=== PATIENT | male | born 1955 | race Caucasian/White ===

== ENCOUNTER 2016-09-05 11:24 | Observation (INO) | payer BC, OTHER ==
[2016-09-05] MEDS ORDERED: Aspirin 81 MG Tab.Chew PO ONE (11:37)
--- NOTE | 2016-09-05 11:38 | EDM.PDOC ---
ED HPI GENERAL MEDICAL PROBLEM - General Chief Complaint: Cardiovascular Problem Stated Complaint: HEART MONITOR Time Seen by Provider: 09/05/16 11:33 - History of Present Illness INITIAL COMMENTS - FREE TEXT/NARRATIVE: HISTORY AND PHYSICAL: History of present illness: Patient is 61-year-old white male history of [id number] diabetes and hypertension who presents with a concern of exertional dyspnea this been somewhat off and on since last week it was worse last week he can also associated generalized weakness he was sent here by clinic after they had noted an irregular heartbeat patient states he has had some pleuritic chest pain denies other concerns. He denies history of DVT or pulmonary embolism Review of systems: As per history of present illness and below otherwise all systems reviewed and negative. Past medical history: As per history of present illness and as reviewed below otherwise noncontributory. Surgical history: As per history of present illness and as reviewed below otherwise noncontributory. Social history: No reported history of drug or alcohol abuse. Family history: As per history of present illness and as reviewed below otherwise noncontributory. Physical exam: HEENT: Atraumatic, normocephalic, pupils reactive, negative for conjunctival pallor or scleral icterus, mucous membranes moist, throat clear, neck supple, nontender, trachea midline. Lungs: Clear to auscultation, breath sounds equal bilaterally, chest nontender. Heart: S1S2, regular, negative for clicks, rubs, or JVD. Abdomen: Soft, nondistended, nontender. Negative for masses or hepatosplenomegaly. Negative for costovertebral tenderness. Pelvis: Stable nontender. Genitourinary: Deferred. Rectal: Deferred. Extremities: Atraumatic, negative for cords or calf pain. Neurovascular unremarkable. Neuro: Awake, alert, oriented. Cranial nerves II through XII unremarkable. Cerebellum unremarkable. Motor and sensory unremarkable throughout. Exam nonfocal. Diagnostics: CBC CMP PT/INR troponin d-dimer BNP EKG CT chest Therapeutics: IV O2 monitor aspirin Impression: #1 intermittent exertional dyspnea #2 pleuritic chest pain Definitive disposition and diagnosis as appropriate pending reevaluation and review of above. - Related Data Allergies Allergy/AdvReac Type Severity Reaction Status Date / Time No Known Allergies Allergy Verified 09/05/16 11:49 Home Meds: Home Meds Lisinopril 10 mg PO DAILY 09/05/16 [History] ED ROS GENERAL - Review of Systems Review Of Systems: ROS reveals no pertinent complaints other than HPI. ED EXAM, GENERAL - Physical Exam Exam: See Below (See dictation) Course - Vital Signs Last Recorded V/S: Last Vital Signs Temp 36.2 C 09/05/16 11:43 Pulse 72 09/05/16 12:14 Resp 17 09/05/16 12:14 BP 113/72 09/05/16 12:14 Pulse Ox 94 L 09/05/16 12:14 - Orders/Labs/Meds Orders: Active Orders 24 hr Category Date Time Status Cardiac Monitoring [RC] . DIRECTED Care 09/05/16 11:36 Active EKG Documentation Completion [RC] STAT Care 09/05/16 11:36 Active Oxygen Therapy, ED [RC] ASDIRECTED Care 09/05/16 11:36 Active Labs: Laboratory Tests 09/05/16 09/05/16 09/05/16 Range/Units 11:30 11:30 11:30 WBC 10.92 (4.0-11.0) K/uL RBC 4.45 L (4.50-5.90) M/uL Hgb 13.4 (13.0-17.0) g/dL Hct 39.5 (38.0-50.0) % MCV 88.8 (80.0-98.0) fL MCH 30.1 (27.0-32.0) pg MCHC 33.9 (31.0-37.0) g/dL RDW Std Deviation 41.7 (28.0-62.0) fl RDW Coeff of Tawnya 13 (11.0-15.0) % Plt Count 230 (150-400) K/uL MPV 11.00 (7.40-12.00) fL Neut % (Auto) 72.6 (48.0-80.0) % Lymph % (Auto) 15.1 L (16.0-40.0) % Alfalfa % (Auto) 11.4 (0.0-15.0) % Eos % (Auto) 0.6 (0.0-7.0) % Baso % (Auto) 0.3 (0.0-1.5) % Neut # (Auto) 7.9 H (1.4-5.7) K/uL Lymph # (Auto) 1.7 (0.6-2.4) K/uL Alfalfa # (Auto) 1.2 H (0.0-0.8) K/uL Eos # (Auto) 0.1 (0.0-0.7) K/uL Baso # (Auto) 0.0 (0.0-0.1) K/uL Nucleated RBC % 0.0 /100WBC Nucleated RBCs # 0 K/uL D-Dimer, Quantitative 1.92 H (0.0-0.52) mg/LFEU Sodium 133 L (136-146) mmol/L Potassium 3.8 (3.5-5.1) mmol/L Chloride 100 (98-110) mmol/L Carbon Dioxide 20 L (21-31) mmol/L BUN 21 (6.0-23.0) mg/dL Creatinine 1.0 (0.6-1.5) mg/dL Est Cr Clr Drug Dosing TNP Estimated GFR (MDRD) > 60.0 ml/min Glucose 162 H (60-110) mg/dL Calcium 9.1 (8.8-10.8) mg/dL Total Bilirubin 0.9 (0.1-1.5) mg/dL AST 20 (5-40) IU/L ALT 24 (8-54) IU/L Alkaline Phosphatase 62 (40-150) Troponin I (0.0-0.29) NG/ML B-Natriuretic Peptide (<100) PG/ML Total Protein 7.0 (6.0-8.0) g/dL Albumin 3.8 (3.4-4.8) g/dL Globulin 3.2 (2.0-3.5) g/dL Albumin/Globulin Ratio 1.2 L (1.3-2.8) 09/05/16 09/05/16 Range/Units 11:30 11:30 WBC (4.0-11.0) K/uL RBC (4.50-5.90) M/uL Hgb (13.0-17.0) g/dL Hct (38.0-50.0) % MCV (80.0-98.0) fL MCH (27.0-32.0) pg MCHC (31.0-37.0) g/dL RDW Std Deviation (28.0-62.0) fl RDW Coeff of Tawnya (11.0-15.0) % Plt Count (150-400) K/uL MPV (7.40-12.00) fL Neut % (Auto) (48.0-80.0) % Lymph % (Auto) (16.0-40.0) % Alfalfa % (Auto) (0.0-15.0) % Eos % (Auto) (0.0-7.0) % Baso % (Auto) (0.0-1.5) % Neut # (Auto) (1.4-5.7) K/uL Lymph # (Auto) (0.6-2.4) K/uL Alfalfa # (Auto) (0.0-0.8) K/uL Eos # (Auto) (0.0-0.7) K/uL Baso # (Auto) (0.0-0.1) K/uL Nucleated RBC % /100WBC Nucleated RBCs # K/uL D-Dimer, Quantitative (0.0-0.52) mg/LFEU Sodium (136-146) mmol/L Potassium (3.5-5.1) mmol/L Chloride (98-110) mmol/L Carbon Dioxide (21-31) mmol/L BUN (6.0-23.0) mg/dL Creatinine (0.6-1.5) mg/dL Est Cr Clr Drug Dosing Estimated GFR (MDRD) ml/min Glucose (60-110) mg/dL Calcium (8.8-10.8) mg/dL Total Bilirubin (0.1-1.5) mg/dL AST (5-40) IU/L ALT (8-54) IU/L Alkaline Phosphatase (40-150) Troponin I < 0.10 (0.0-0.29) NG/ML B-Natriuretic Peptide 96 (<100) PG/ML Total Protein (6.0-8.0) g/dL Albumin (3.4-4.8) g/dL Globulin (2.0-3.5) g/dL Albumin/Globulin Ratio (1.3-2.8) Meds: Medications Discontinued Medications Generic Name Dose Route Start Last Admin Trade Name Freq PRN Reason Stop Dose Admin Aspirin 324 mg 09/05/16 11:37 09/05/16 11:41 Aspirin PO 09/05/16 11:38 324 mg ONETIME ONE Administration Iopamidol 50 ml 09/05/16 12:59 09/05/16 13:00 Isovue Multipack-370 (76%) IVPUSH 09/05/16 13:00 50 ml ONETIME STA Administration Departure - Departure Time of Disposition: 13:11 Disposition: Refer to Observation Condition: good Clinical Impression: Dyspnea Forms: ED Department Discharge - My Orders Last 24 Hours: My Active Orders 09/05/16 11:36 Cardiac Monitoring [RC] . DIRECTED EKG Documentation Completion [RC] STAT Oxygen Therapy, ED [RC] ASDIRECTED - Assessment/Plan Last 24 Hours: My Active Orders 09/05/16 11:36 Cardiac Monitoring [RC] . DIRECTED EKG Documentation Completion [RC] STAT Oxygen Therapy, ED [RC] ASDIRECTED
[2016-09-05 12:10] LABS: CHLORIDE,CL 100 mmol/L (98-110); SODIUM,NA 133 mmol/L (136-146)
[2016-09-05] MEDS ORDERED: Iopamidol 755 MG/ML 500 ML Multipack Bottle IVPUSH STA (12:59)
--- NOTE | 2016-09-05 13:10 | CT ---
EXAMINATION: CTA chest HISTORY: Chest pain COMPARISON: None TECHNIQUE: Axial CT images obtained through the chest following the administration of 50 mL of Isovu e-370. Coronal and sagittal reconstructions obtained. FINDINGS: There is a 2.7 cm nodular area within the left lower lobe. There is a fullness of the left hilum also demonstrated with mild peribronchovascular thickening. Mildly prominent mediastinal lymp h nodes are noted measuring up to 12 mm in the short axis. The heart is normal in size without a per icardial effusion. The thoracic aorta is normal in caliber. The main and central pulmonary arteries are patent. There is a trace left pleural effusion with mild bibasilar atelectasis. There is likely a tiny hiatal hernia. No axillary lymphadenopathy. The central airways are clear. No suspicious osseous abnormalities identified. IMPRESSION: 1. There is a 2.7 cm ill-defined nodular area within the left lower lobe. This could represent focal consolidation however a neoplastic process is a consideration. Short-term follow-up may be benefici al. 2. Left hilar fullness and borderline to mildly prominent mediastinal lymphadenopathy. Additionally this could be reactive. 3. No pulmonary embolism identified.
[2016-09-05] MEDS ORDERED: Acetaminophen 325 MG Tab PO PRN (14:10)
[2016-09-05] MEDS ORDERED: Ondansetron 4 MG/2 ML SDV IVPUSH PRN (14:10)
[2016-09-05] MEDS ORDERED: Sodium Chloride 0.9% 2.5 ML Syringe FLUSH PRN (14:10)
--- NOTE | 2016-09-05 14:33 | PCM.HP ---
H&P History of Present Illness - General Date of Service: 09/05/16 Source of Information: Patient History Limitations: Reports: No Limitations - History of Present Illness Initial Comments - Free Text/Narative: This 61 year old male with pmh of DM type 2 and HTN presented to his PCP, Judith Hutchinson today with concerns of feeling ill over the weekend with malaise, generalized weakness and dypsnea with exertion. An WKG was performed and irregularity was noted and he was sent to the ED. He reports the beginning of last week he traveled from his home in [facility] to here, [place], via car. He noticed dyspnea with exertion on and then over the weekend he noted more SOB, some sharp pleuritic chest pain with deep breaths, poor appetite , malaise and generalized weakness. Reports nothing really helped the pain, except from refraining from deep breathing, which would worsen it. He reports while he was in [place] he stayed in a house with a lot of mold. He noticed no symptoms there, and currently denies, itching red eyes, sore throat, cough, hemoptysis or rash. He continues to reports slight SOB and pain mid sternally with deep breaths only, with irregular heart beat at the office he did notice palpitations, but has not felt anything since. He denies any sore throat, sinus congestion, ear pain, no jaw pain or chest pain at rest, no N/V, abdominal pain , no urinary symptoms and no black or bloody BMs. He denies any swelling to lower legs and no calf tenderness, erythema. No recent unexplained weight loss. no family history of lung cancer. Denies smoking or tobacco use. Uses alcohol infrequently and no recreational drug use. He also reports not taking Metformin for over 8 months, BS have been more elevated recently, 160-180s at home, he just started checking them again since feeling ill last week. In the ED no leukocytosis noted, D dimer elevated slightly 1.92, Na 133, BA 162 , troponin negative and EKG SR 70s, with noted PVCs on monitor. VS were stable, no noted hypoxia on RA. CT angio completed due to elevated D dimer, no pulmonary emboli noted, there is a 2.7 cm ill defined nodular area within the left lower lobe, this could represent focal consolidation, however neoplastic process is a consideration, radiology recommended short term follow up. He will be admitted with dyspnea, atypical chest pain and pneumonia. PCP, Judith Hutchinson NP Middle Chest Pain Score (Numeric/FACES): 4 - Related Data Allergies/Adverse Reactions: Allergies Allergy/AdvReac Type Severity Reaction Status Date / Time No Known Allergies Allergy Verified 09/05/16 11:49 Home Medications: Home Meds Lisinopril 10 mg PO DAILY 09/05/16 [History] Past Medical History Cardiovascular History: Reports: Hypertension, SOB on Exertion. Denies: Afib, Blood Clots/VTE/DVT, CAD, Heart Failure, NM Respiratory History: Denies: Asthma, COPD, PE Gastrointestinal History: Reports: None. Denies: GERD, GI Bleed, Hepatitis, Inflammatory Bowel Disease Genitourinary History: Reports: None. Denies: Chronic Renal Insuffiency Musculoskeletal History: Reports: None Neurological History: Reports: None. Denies: CVA, MS, TIA Endocrine/Metabolic History: Reports: Diabetes, Type II, Obesity/BMI 30+. Denies: Hypothyroidism Dermatologic History: Reports: None Social & Family History - Tobacco Use Smoking Status *Q: Never Smoker Second Hand Smoke Exposure: No - Caffeine Use Caffeine Use: Reports: Coffee - Alcohol Use Alcohol Use History: Yes Alcohol Use Frequency: Socially - Recreational Drug Use Recreational Drug Use: No - Living Situation & Occupation Occupation: Employed H&P Review of Systems - Review of Systems: Review Of Systems: See Below General: Reports: Malaise, Weakness, Fatigue. Denies: Fever, Decreased Appetite , Weight Loss HEENT: Denies: Dysphasia, Ear Pain, Headaches, Sinus Congestion, Sore Throat Pulmonary: Reports: Pleuritic Chest Pain. Denies: Cough, Sputum Cardiovascular: Reports: Dyspnea on Exertion. Denies: Chest Pain, Palpitations , Orthopnea, Edema, Lightheadedness Gastrointestinal: Reports: No Symptoms. Denies: Abdominal Pain, Black Stool, Bloody Stool, Decreased Appetite, Distension, Nausea, Vomiting Genitourinary: Reports: No Symptoms. Denies: Dysuria, Frequency, Burning, Pain , Retention, Flank Pain Musculoskeletal: Reports: No Symptoms Skin: Reports: No Symptoms. Denies: Rash, Wound Exam - Exam Exam: See Below - Vital Signs Vital Signs: Last Vital Signs Temp 97.2 F 09/05/16 11:43 Pulse 72 05/23/17 13:24 Resp 16 09/05/16 13:24 BP 113/68 09/05/16 13:24 Pulse Ox 94 L 09/05/16 13:24 Weight: 115.666 kg - Exam Quality Assessment: DVT Prophylaxis. No: Supplemental Oxygen General: Alert, Oriented, Cooperative HEENT: Conjunctiva Clear, Mucosa Moist & [place], Nares Patent, Posterior Pharynx Clear, Pupils Reactive Neck: Supple, Trachea Midline, Full Range of Motion. No: Lymphadenopathy, JVD Lungs: Clear to Auscultation, Normal Respiratory Effort. No: Decreased Breath Sounds, Crackles, Rhonchi, Wheezing Cardiovascular: Regular Rate, Regular Rhythm, Normal S1, Normal S2. No: Irregular Rhythm, Tachycardia, Systolic Murmur Abdomen: Normal Bowel Sounds, Soft. No: Organomegaly, Peritoneal Signs, Distention, Tenderness Back Exam: Full Range of Motion Extremities: Normal Inspection, Normal Pulses. No: Edema Neuro Extensive - Mental Status: Alert, Oriented x3, Normal Mood/Affect Neuro Extensive - Motor, Sensory, Reflexes: CN II-XII Intact Psychiatric: Alert, Normal Affect, Normal Mood - Patient Data Result Diagrams: 09/05/16 11:30 09/05/16 11:30 EKG INTERPRETATION EKG Date: 09/05/16 Rhythm: NSR Rate (beats/min): 76 [place]: normal Comparison: NA - no prior EKG EKG Interpretation Comments: PVCs noted *Q Meaningful Use (ADM) - VTE *Q VTE Criteria *Q: - VTE Risk Assess *Q Each Risk Factor Represents 1 Point: Obesity (BMI greater than 30), Serious Lung Disease Including Pneumonia, Less than 1 Month Total Score 1 Point Risk Factors: 2 Each Risk Factor Represents 2 Points: Age 60 - 74 Years Total Score 2 Point Risk Factors: 2 Each Risk Factor Represents 3 Points: None Total Score 3 Point Risk Factors: 0 Each Risk Factor Represents 5 Points: None Total Score 5 Point Risk Factors: 0 Venous Thromboembolism Risk Factor Score *Q: 4 - Stroke *Q Stroke Criteria *Q: - AMI *Q AMI Criteria *Q: - Problem List (1) Dyspnea SNOMED Code(s): 389756291 ICD Code: R06.00 - DYSPNEA, UNSPECIFIED Status: Acute Current Visit: Yes Qualifiers: Dyspnea type: dyspnea on exertion Qualified Code(s): R06.09 - Other forms of dyspnea (2) Pneumonia SNOMED Code(s): 949998748 ICD Code: J18.9 - PNEUMONIA, UNSPECIFIED ORGANISM Status: Acute Current Visit: Yes Qualifiers: Pneumonia type: due to unspecified organism Laterality: left Lung location: lower lobe of lung Qualified Code(s): J18.1 - Lobar pneumonia, unspecified organism (3) Atypical chest pain SNOMED Code(s): 659449624 ICD Code: R07.89 - OTHER CHEST PAIN Status: Acute Current Visit: Yes (4) DM type 2 (diabetes mellitus, type 2) SNOMED Code(s): 30432795 ICD Code: E11.9 - TYPE 2 DIABETES MELLITUS WITHOUT COMPLICATIONS Status: Chronic Current Visit: Yes Qualifiers: Diabetes mellitus complication status: with hyperglycemia Diabetes mellitus snf insulin use: without snf use Qualified Code(s): E11.65 - Type 2 diabetes mellitus with hyperglycemia (5) HTN (hypertension) SNOMED Code(s): 91039657 ICD Code: I10 - ESSENTIAL (PRIMARY) HYPERTENSION Status: Chronic Current Visit: Yes Qualifiers: Hypertension type: essential hypertension Qualified Code(s): I10 - Essential (primary) hypertension (6) Obesity (BMI 30.0-34.9) SNOMED Code(s): 658432662 ICD Code: E66.9 - OBESITY, UNSPECIFIED Status: Chronic Current Visit: Yes Problem List Initiated/Reviewed/Updated: Yes Orders Last 24hrs: Active Orders 24 hr Category Date Time Status Intake and Output [RC] QSHIFT Care 09/05/16 14:12 Ordered Oxygen Therapy [RC] PRN Care 09/05/16 14:10 Ordered Telemetry Monitoring [Cardiac Monitoring] [RC] . Care 09/05/16 14:19 Active DIRECTED Up With Assistance [RC] ASDIRECTED Care 09/05/16 14:10 Ordered VTE/DVT Education [RC] PER UNIT ROUTINE Care 09/05/16 14:10 Ordered Vital Signs [RC] Q4H Care 09/05/16 14:10 Ordered [employer] Diet [DIET] Diet 09/05/16 Dinner Ordered BMP [BASIC METABOLIC PANEL,BMP] [CHEM] Routine Lab 09/06/16 05:00 Ordered CBC WITH AUTO DIFF [HEME] Routine Lab 09/06/16 05:00 Ordered GLYCOSYLATED HEMOGLOBIN,HGBA1C [CHEM] Routine Lab 09/05/16 14:27 Ordered INFLUENZA A+B AG SCREEN [RM] Stat Lab 09/05/16 14:03 Uncollected LIPID PANEL [CHEM] Routine Lab 09/06/16 05:00 Ordered MAGNESIUM [CHEM] Routine Lab 09/05/16 14:10 Ordered TROPONIN I [CHEM] Q6H Lab 09/05/16 17:30 Ordered TROPONIN I [CHEM] Q6H Lab 09/05/16 23:30 Ordered Acetaminophen [Tylenol] Med 09/05/16 14:10 Ordered 650 mg PO Q4H PRN Azithromycin [Zithromax] Med 09/06/16 09:00 Ordered 250 mg PO Q24H Azithromycin [Zithromax] Med 09/05/16 14:22 Once 500 mg PO Q24H ONE Enoxaparin [Lovenox] Med 09/06/16 09:00 Ordered 40 mg SUBCUT DAILY Insulin Aspart [NovoLOG] Med 09/05/16 17:00 Ordered See Protocol SUBCUT TIDAC Ondansetron [Zofran] Med 09/05/16 14:10 Ordered 4 mg IVPUSH Q4H PRN Sodium Chloride 0.9% [Saline Flush] Med 09/05/16 14:10 Ordered 2.5 ml FLUSH ASDIRECTED PRN cefTRIAXone [Rocephin in Dextrose,Iso-Osm 1 GM/50 ML] 1 Med 09/05/16 14:30 Ordered gm Premix Bag 1 bag IV Q24H Saline Lock Insert [OM.PC] Routine Oth 09/05/16 14:10 Ordered Resuscitation Status Routine Resus Stat 09/05/16 14:10 Ordered Medication Orders Acetaminophen (Tylenol) 650 mg PO Q4H PRN PRN Reason: Pain Azithromycin (Zithromax) 500 mg PO Q24H ONE Stop: 09/05/16 14:46 Azithromycin (Zithromax) 250 mg PO Q24H CARISSA Enoxaparin Sodium (Lovenox) 40 mg SUBCUT DAILY CARISSA Ceftriaxone Sodium/Dextrose 1 (gm/ Premix) 50 mls @ 100 mls/hr IV Q24H CARISSA Insulin Aspart (Novolog) 0 unit SUBCUT TIDAC CARISSA PRN Reason: Protocol Ondansetron HCl (Zofran) 4 mg IVPUSH Q4H PRN PRN Reason: Nausea Sodium Chloride (Saline Flush) 2.5 ml FLUSH ASDIRECTED PRN PRN Reason: Keep Vein Open Assessment/Plan Comment:: This 61 year old male admitted with atypical chest pain, dyspnea and pneumonia 1. Atypical chest pain: Will trend troponins, A1c 7.4. Lipid panel in am. Monitor on telemetry. Likely associated with pneumonia but will rule out ACS. Electrolytes WNL. 2. Pneumonia: focal nodular area noted on CT, will treat with Azithromycin and Rocephin. Will need follow up with imaging to rule out neoplasm, patient is aware. Will obtain oxygenation sat with activity. Monitor dyspnea. Influenza swab negative. 3. HTN: Continue Lisinopril 4. DM type 2: Novolog SSI while in hospital, will arrange for new metformin prescription upon discharge. Follow up with PCP. VTE prophylaxis: Lovenox. Dispo: Possible DC in am.
[2016-09-05] MEDS: cefTRIAXone 1 GM in Premix Bag 1 BAG IV SCH (14:45)
[2016-09-05] MEDS ORDERED: Azithromycin 250 MG Tab PO ONE (14:45)
[2016-09-05] MEDS: Insulin Aspart 100 Units/ML 3 ML Pen SUBCUT SCH (18:07)
[2016-09-06 05:46] LABS: CHLORIDE,CL 103 mmol/L (98-110); SODIUM,NA 137 mmol/L (136-146)
[2016-09-06] MEDS: Insulin Aspart 100 Units/ML 3 ML Pen SUBCUT SCH ×3 (08:00→17:24)
[2016-09-06] MEDS ORDERED: Enoxaparin 40 MG/0.4 ML Syringe SUBCUT SCH (09:00)
[2016-09-06] MEDS ORDERED: Azithromycin 250 MG Tab PO SCH (09:00)
--- NOTE | 2016-09-06 10:42 | PCM.DCSUM1 ---
Discharge Summary - Hospital Course Brief History: This 61 year old male with pmh of DM type 2 and HTN presented to his PCP, Lois Hutchinson 09/05/2016 with concerns of feeling ill over the weekend with malaise, generalized weakness and dypsnea with exertion. An EKG was performed and irregularity was noted and he was sent to the ED. He reports the beginning of last week he traveled from his home in [facility] to here, [place], via car. He noticed dyspnea with exertion on and then over the weekend he noted more SOB, some sharp pleuritic chest pain with deep breaths , poor appetite, malaise and generalized weakness. Reports nothing really helped the pain, except from refraining from deep breathing, which would worsen it. He reports while he was in [place] he stayed in a house with a lot of mold. He noticed no symptoms there, and currently denies, itching red eyes, sore throat, cough, hemoptysis or rash. He continues to reports slight SOB and pain mid sternally with deep breaths only, with irregular heart beat at the office he did notice palpitations, but has not felt anything since. He denies any sore throat, sinus congestion, ear pain, no jaw pain or chest pain at rest, no N/V, abdominal pain, no urinary symptoms and no black or bloody BMs. He denies any swelling to lower legs and no calf tenderness, erythema. No recent unexplained weight loss. no family history of lung cancer. Denies smoking or tobacco use. Uses alcohol infrequently and no recreational drug use. He also reports not taking Metformin for over 8 months, BS have been more elevated recently, 160-180s at home, he just started checking them again since feeling ill last week. In the ED no leukocytosis noted, D dimer elevated slightly 1.92 , Na 133, BA 162, troponin negative and EKG SR 70s, with noted PVCs on monitor. VS were stable, no noted hypoxia on RA. CT angio completed due to elevated D dimer, no pulmonary emboli noted, there is a 2.7 cm ill defined nodular area within the left lower lobe, this could represent focal consolidation, however neoplastic process is a consideration, radiology recommended short term follow up. He was admitted with dyspnea, atypical chest pain and pneumonia. PCP, Lois Hutchinson, [employer] - Discharge Data Discharge Date: 09/06/16 Discharge Disposition: Home, Self-Care 01 Condition: Good - Discharge Diagnosis/Problem(s) (1) Dyspnea SNOMED Code(s): 139529080 ICD Code: R06.00 - DYSPNEA, UNSPECIFIED Status: Acute Current Visit: Yes Qualifiers: Dyspnea type: dyspnea on exertion Qualified Code(s): R06.09 - Other forms of dyspnea (2) Pneumonia SNOMED Code(s): 076079968 ICD Code: J18.9 - PNEUMONIA, UNSPECIFIED ORGANISM Status: Acute Current Visit: Yes Qualifiers: Pneumonia type: due to unspecified organism Laterality: left Lung location: lower lobe of lung Qualified Code(s): J18.1 - Lobar pneumonia, unspecified organism (3) Atypical chest pain SNOMED Code(s): 900972242 ICD Code: R07.89 - OTHER CHEST PAIN Status: Acute Current Visit: Yes (4) DM type 2 (diabetes mellitus, type 2) SNOMED Code(s): 30004615 ICD Code: E11.9 - TYPE 2 DIABETES MELLITUS WITHOUT COMPLICATIONS Status: Chronic Current Visit: Yes Qualifiers: Diabetes mellitus complication status: with hyperglycemia Diabetes mellitus exterminator insulin use: without exterminator use Qualified Code(s): E11.65 - Type 2 diabetes mellitus with hyperglycemia (5) HTN (hypertension) SNOMED Code(s): 37257372 ICD Code: I10 - ESSENTIAL (PRIMARY) HYPERTENSION Status: Chronic Current Visit: Yes Qualifiers: Hypertension type: essential hypertension Qualified Code(s): I10 - Essential (primary) hypertension (6) Obesity (BMI 30.0-34.9) SNOMED Code(s): 600719880 ICD Code: E66.9 - OBESITY, UNSPECIFIED Status: Chronic Current Visit: Yes - Discharge Plan Prescriptions/Med Rec: Azithromycin [Zithromax] 250 mg PO Q24H #3 tablet Metoprolol Succinate [Toprol XL] 25 mg PO DAILY #30 tab.er Rivaroxaban [Xarelto] 20 mg PO ACDINNER #30 tablet metFORMIN HCl [Metformin HCl] 1,000 mg PO BID #60 tablet Home Medications: Home Meds Lisinopril 10 mg PO DAILY 09/05/16 [History] Azithromycin [Zithromax] 250 mg PO Q24H #3 tablet 09/06/16 [Rx] Metoprolol Succinate [Toprol XL] 25 mg PO DAILY #30 tab.er 09/06/16 [Rx] Rivaroxaban [Xarelto] 20 mg PO ACDINNER #30 tablet 09/06/16 [Rx] metFORMIN HCl [Metformin HCl] 1,000 mg PO BID #60 tablet 09/06/16 [Rx] Patient Handouts: Shortness of Breath, [id number], Metoprolol extended- release tablets, Rivaroxaban oral tablets, Azithromycin tablets, Metformin tablets, Atrial Fibrillation, [id number], Community-Acquired Pneumonia, Adult , [id number] Referrals: [facility] [Outside] Lois Hutchinson NP [Primary Care Provider] - 09/14/16 10:15 am - Discharge Summary/Plan Comment DC Time >30 min.: No Discharge Summary/Plan Comment: Discharge Diagnoses: New onset Afib, paroxysmal Pneumonia Dyspnea HTN DM type 2, uncontrolled. Eliecer was admitted, ACS ruled out with serial troponins. Telemetry was monitored and with activity HR was noted to elevate to 150s, intermittently it did show signs of Atrial fibrillation. Dr. Grossman was consulted and recommended Metoprolol XL 25 mg daily for rate control and for him to be placed on anticoagulation. Xarelto 20 mg daily was started. ECHO is pending on discharge, Dr. Ogedn did look at this personally. He recommends follow up with him in 2-3 months. A 2.7 cm nodular consolidation was noted on CT angio. Short term follow up and re-imaging was recommended by Radiologist. Will have PCP arrange follow up for this. This may be infectious in nature, he was started on Rocephin and Azithromycin. I will discharge him on on 3 more days of Azithromycin for possible pneumonia. Today he is feeling better and has been asymptomatic with elevated HRs. He has been up ambulating with no further dyspnea. I will send him on with new prescriptions for Metoprolol XL 25 daily, Xarelto 20 mg daily, and Metformin 1,000 mg BID for DM. He is to follow up with Lois Hutchinson NP regarding new onset afib and to arrange follow up imaging for LLL lung nodule. He is to return to ED or clinic if concerns should arise. - General Info Date of Service: 09/06/16 Admission Dx/Problem (Free Text: dyspnea Subjective Update: Denies any further dyspnea, no palpitations or chest pain. The pleuritic pain with deep breathing has improved. No cough or fevers overnight. Reports he didn' t sleep well. On telemetry, tachycardia noted to 150s, SR with PAC and PVCs. Asymptomatic. Functional Status: Reports: pain controlled, tolerating diet, ambulating, urinating - Review of Systems General: Reports: No Symptoms. Denies: Fever, Fatigue Pulmonary: Reports: no symptoms. Denies: shortness of breath, cough, sputum Cardiovascular: Reports: No Symptoms. Denies: Chest Pain, Palpitations, Edema Gastrointestinal: Reports: No symptoms. Denies: Abdominal pain, Nausea, Vomiting Genitourinary: Reports: no symptoms Musculoskeletal: Reports: no symptoms Skin: Reports: no symptoms Neurological: Reports: No Symptoms Psychiatric: Reports: no symptoms - Patient Data Vitals - Most Recent: Last Vital Signs Temp 98.3 F 09/06/16 08:00 Pulse 61 09/06/16 08:00 Resp 16 09/06/16 08:00 BP 114/56 L 09/06/16 08:00 Pulse Ox 92 L 09/06/16 08:00 Weight - Most Recent: 115.666 kg I&O - Last 24 hours: Intake & Output 09/05/16 09/06/16 09/06/16 22:59 06:59 14:59 Intake Total 250 990 Output Total 725 1425 Balance -475 -435 Lab Results - Last 24 hrs: Laboratory Results - last 24 hr 09/05/16 09/05/16 09/05/16 Range/Units 16:20 17:31 23:15 WBC (4.0-11.0) K/uL RBC (4.50-5.90) M/uL Hgb (13.0-17.0) g/dL Hct (38.0-50.0) % MCV (80.0-98.0) fL MCH (27.0-32.0) pg MCHC (31.0-37.0) g/dL RDW Std Deviation (28.0-62.0) fl RDW Coeff of Tawnya (11.0-15.0) % Plt Count (150-400) K/uL MPV (7.40-12.00) fL Neut % (Auto) (48.0-80.0) % Lymph % (Auto) (16.0-40.0) % [place] % (Auto) (0.0-15.0) % Eos % (Auto) (0.0-7.0) % Baso % (Auto) (0.0-1.5) % Neut # (Auto) (1.4-5.7) K/uL Lymph # (Auto) (0.6-2.4) K/uL [place] # (Auto) (0.0-0.8) K/uL Eos # (Auto) (0.0-0.7) K/uL Baso # (Auto) (0.0-0.1) K/uL Nucleated RBC % /100WBC Nucleated RBCs # K/uL Sodium (136-146) mmol/L Potassium (3.5-5.1) mmol/L Chloride (98-110) mmol/L Carbon Dioxide (21-31) mmol/L BUN (6.0-23.0) mg/dL Creatinine (0.6-1.5) mg/dL Est Cr Clr Drug Dosing mL/min Estimated GFR (MDRD) ml/min Glucose (60-110) mg/dL POC Glucose 118 H (60-110) mg/dL Calcium (8.8-10.8) mg/dL Troponin I < 0.10 < 0.10 (0.0-0.29) NG/ML Triglycerides (10-190) mg/dL Cholesterol (131-240) mg/dL LDL Cholesterol, Calc (60-180) mg/dL VLDL Cholesterol (5-55) mg/dL HDL Cholesterol (40-80) mg/dL Cholesterol/HDL Ratio (3.3-6.0) 09/06/16 09/06/16 09/06/16 Range/Units 04:39 04:39 06:19 WBC 9.59 (4.0-11.0) K/uL RBC 4.15 L (4.50-5.90) M/uL Hgb 12.4 L (13.0-17.0) g/dL Hct 37.2 L (38.0-50.0) % MCV 89.6 (80.0-98.0) fL MCH 29.9 (27.0-32.0) pg MCHC 33.3 (31.0-37.0) g/dL RDW Std Deviation 41.2 (28.0-62.0) fl RDW Coeff of Tawnya 13 (11.0-15.0) % Plt Count 258 (150-400) K/uL MPV 11.30 (7.40-12.00) fL Neut % (Auto) 72.9 (48.0-80.0) % Lymph % (Auto) 15.0 L (16.0-40.0) % [place] % (Auto) 10.9 (0.0-15.0) % Eos % (Auto) 0.8 (0.0-7.0) % Baso % (Auto) 0.4 (0.0-1.5) % Neut # (Auto) 7.0 H (1.4-5.7) K/uL Lymph # (Auto) 1.4 (0.6-2.4) K/uL [place] # (Auto) 1.1 H (0.0-0.8) K/uL Eos # (Auto) 0.1 (0.0-0.7) K/uL Baso # (Auto) 0.0 (0.0-0.1) K/uL Nucleated RBC % 0.0 /100WBC Nucleated RBCs # 0 K/uL Sodium 137 (136-146) mmol/L Potassium 3.8 (3.5-5.1) mmol/L Chloride 103 (98-110) mmol/L Carbon Dioxide 20 L (21-31) mmol/L BUN 16 (6.0-23.0) mg/dL Creatinine 0.9 (0.6-1.5) mg/dL Est Cr Clr Drug Dosing 93.41 mL/min Estimated GFR (MDRD) > 60.0 ml/min Glucose 124 H (60-110) mg/dL POC Glucose 136 H (60-110) mg/dL Calcium 8.6 L (8.8-10.8) mg/dL Troponin I (0.0-0.29) NG/ML Triglycerides 95 (10-190) mg/dL Cholesterol 116 L (131-240) mg/dL LDL Cholesterol, Calc 77 (60-180) mg/dL VLDL Cholesterol 19 (5-55) mg/dL HDL Cholesterol 20 L (40-80) mg/dL Cholesterol/HDL Ratio 5.8 (3.3-6.0) LENKA Results - Last 24 hrs: Microbiology 05/23/17 14:55 Influenza Type A Antigen Screen - Final Nasopharyngeal Swab - Nare, Left NEGATIVE INFLUENZA A VIRUS AG Influenza Type B Antigen Screen - Final NEGATIVE INFLUENZA B VIRUS AG Med Orders - Current: Current Medications Acetaminophen (Tylenol) 650 mg PO Q4H PRN PRN Reason: Pain Azithromycin (Zithromax) 250 mg PO Q24H [facility] Last Admin: 09/06/16 09:07 Dose: 250 mg Enoxaparin Sodium (Lovenox) 40 mg SUBCUT DAILY [facility] Last Admin: 09/06/16 09:07 Dose: 40 mg Ceftriaxone Sodium/Dextrose 1 (gm/ Premix) 50 mls @ 100 mls/hr IV Q24H [facility] Last Admin: 09/05/16 14:45 Dose: 100 mls/hr Insulin Aspart (Novolog) 0 unit SUBCUT TIDAC [facility] PRN Reason: Protocol Last Admin: 09/06/16 08:00 Dose: Not Given Ondansetron HCl (Zofran) 4 mg IVPUSH Q4H PRN PRN Reason: Nausea Sodium Chloride (Saline Flush) 2.5 ml FLUSH ASDIRECTED PRN PRN Reason: Keep Vein Open Discontinued Medications Aspirin (Aspirin) 324 mg PO ONETIME ONE Stop: 09/05/16 11:38 Last Admin: 09/05/16 11:41 Dose: 324 mg Azithromycin (Zithromax) 500 mg PO Q24H ONE Stop: 09/05/16 14:46 Last Admin: 09/05/16 14:45 Dose: 500 mg Iopamidol (Isovue Multipack-370 (76%)) 50 ml IVPUSH ONETIME STA Stop: 09/05/16 13:00 Last Admin: 09/05/16 13:00 Dose: 50 ml - Exam General: Reports: alert, oriented, cooperative, no acute distress Neck: Reports: supple. Denies: no JVD, lymphadenopathy Lungs: Reports: Clear to auscultation, Normal respiratory effort Cardiovascular: Reports: Regular Rate, No Murmurs, Irregular Rhythm ( intermittently) Abdomen: Reports: bowel sounds present, soft, no tenderness, no distension Extremities: Reports: no edema, normal pulses Skin: Reports: warm, dry, intact Psy/Mental Status: Reports: alert, normal affect, normal mood *Q Meaningful Use (DIS) - VTE *Q VTE Criteria *Q: - Stroke *Q Stroke Criteria *Q: - AMI *Q AMI Criteria *Q:
[2016-09-06] MEDS: cefTRIAXone 1 GM in Premix Bag 1 BAG IV SCH (14:10)
[2016-09-06] MEDS ORDERED: Metoprolol Succinate 25 MG Tab.ER PO SCH (14:45)
[2016-09-06 15:18] VITALS: BP 143/77
[2016-09-06] MEDS ORDERED: Rivaroxaban 15 MG Tab PO SCH (17:30)
--- NOTE | 2016-09-06 22:14 | CONS ---
DATE OF CONSULTATION: DATE OF : 1955 PRIMARY CARE PHYSICIAN: Lois Hutchinson NP REASON FOR CONSULTATION: Chest pain. HISTORY OF PRESENT ILLNESS: This is a 61-year-old male with history of hypertension, diabetes, not on any diabetic medication, presented to the hospital with flu symptoms, fatigue, and shortness of breath. He also mentioned about chest pain also. He does describe chest pain as the pain in around the left rib cage epigastric area, especially when he tried to take a deep breath and is not constant, very brief. It was like 2 to 3 from 10 pain scale and this happened recently after he started being sick. He was diagnosed with pneumonia with possible consolidation on the CT chest but no evidence on PE. Prior to this, he had been doing well. No chest pain. 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 No leg swelling. No claudication. Never had a cardiac stress test done before. He ran out of diabetic medication. His A1c is 7.4. Otherwise, no passing out. No orthopnea, no PND. REVIEW OF SYSTEMS: Seemed to be negative except as indicated in the HPI. PAST MEDICAL HISTORY: Include hypertension and diabetes. ALLERGIES: No known drug allergies. FAMILY HISTORY: No CAD, no arrhythmia. MEDICATIONS: Home medications include lisinopril 10 mg once a day. SOCIAL HISTORY: He denies smoking, drinks occasionally, no drugs. He is single. He was long time ago. PHYSICAL EXAMINATION: VITAL SIGNS: Blood pressure is currently 130/60, initially it was 140/94; heart rate of 67; temperature 36.8; O2 saturation 92 to 94 on room air; respiration rate is 16. HEENT: Not pale, no jaundice, no JVD. HEART: Normal S1, S2. No murmur. Regular rate and rhythm. LUNGS: Crackle on the left side. No wheezing. ABDOMEN: Soft, nontender. Bowel sounds are present. No hepatosplenomegaly. Legs, no edema. No leg claudication. LABORATORY INVESTIGATION: CBC showed WBC of 9, hematocrit 37, hemoglobin 12, platelet is 285. D-dimer 1.9, sodium 137, potassium 3.8, chloride 103, bicarb 20, BUN 16, creatinine 0.9. GFR is more than 60, glucose 124, A1c 7.4, troponin is negative x3. Triglyceride 95, total cholesterol is 116, LDL 77, HDL 20. CT angiogram, there is no PE, possible left lower lobe pneumonia. EKG, September 05, 2016, shows sinus rhythm, heart rate 75, LA interval 126, QRS duration 104, QTc interval 446. Telemetry show paroxysmal atrial fibrillation with a heart rate of 150s. ASSESSMENT AND PLAN: This is a 61-year-old male with history of hypertension and diabetes, not on any medication currently with A1c of 7.4, poor control, came into the hospital with chest pain, seemed to be pleuritic chest pain with flu symptoms, possible pneumonia. He is feeling much better after IV antibiotics and he still has some chest pain. He tried to bring on the chest pain by taking a deep breath and his chest pain, it sounds like pleuritic chest pain possible from pneumonia and he stated that before he being sick, he never had any chest pain, and his breathing seemed to be the same, nothing changed, no leg swelling. I looked at the echo briefly, it looks like he has a preserved ejection fraction and I would wait until echocardiogram has been finalized. EKG, there is no ST-T abnormalities on my interpretation and troponin has been negative. He has been ruled out for ACS. Regarding atrial fibrillation, it may or may not be related to his illnesses with pneumonia, however, there might be a chance that he already has some atrial fibrillation to begin with given his age and risk factors including hypertension and diabetes. I also recommended him to be taking long-term anticoagulation for stroke prevention and explained to him about the risks of stroke from atrial fibrillation and I would recommend to start him on Toprol-XL 25 mg once a day. I also told him about a sleep study for screening for sleep apnea that could have been related to atrial fibrillation. He is not interested to do a sleep study. He will be followed with me in the clinic in 2 to 3 months and also follow up with the primary care doctor. MANDA JAMES /[id number]
--- NOTE | 2016-09-08 17:42 | ECHO ---
The echocardiogram report can be seen in this patient's EMR in the Reports section. ATUL
--- NOTE | 2016-09-12 09:53 | PCM.SN ---
- Free Text/Narrative Note: Sherif called today (09.12.2016) With concerns of still having pain with deep breathing intermittently. He is concerned his pneumonia is not cleared yet after discharge. I encouraged him to see REYNA Castillo at scheduled follow up appointment on September 14. He does need follow up imaging regarding nodule seen on CT. He seemed frustrated with this. He reports he also stopped taking Xarelto secondary to dark stools. He was encouraged to seek care from PCP sooner than appointment on September 14 with Lois Hutchinson NP. He stated "Yeah that isn't gonna happen." He then abruptly ended the phone call. I attempted to contact Lois Hutchinson NP, at this time I have not spoken with her she is unavailable this morning.
== END 2016-09-06 15:50 | disposition home or self-care (01) ==
LOC: MW.ED 11:24 → MW.MS 14:01
PROVIDERS: ADMIT Internal Medicine; ATTEND Internal Medicine
DX: I48.0 Paroxysmal atrial fibrillation (principal); I49.3 Ventricular premature depolarization; J18.1 Lobar pneumonia, unspecified organism; E11.65 Type 2 diabetes mellitus with hyperglycemia; I10 Essential (primary) hypertension; R59.0 Localized enlarged lymph nodes; E66.9 Obesity, unspecified; Z79.899 Other long term (current) drug therapy; Z79.4 Long term (current) use of insulin; Z79.2 Long term (current) use of antibiotics; Z79.82 Long term (current) use of aspirin; Z68.30 Body mass index [BMI] 30.0-30.9, adult
CPT/HCPCS: 36415; 71275; 80048; 80053; 80061; 82962; 83036; 83735; 83880; 84484; 85025; 85379; 87804; 93005; 93306; 96365; 96366; 96372; 99285; A9270; G0378; J0696; J1650; Q9967; 99284

== ENCOUNTER 2021-04-08 02:25 | Emergency (ER) | payer OTHER, MEDICARE ==
[2021-04-08 02:46] VITALS: PULSE 81
[2021-04-08 03:24] LABS: BLOOD UREA NITROGEN,BUN 15 mg/dL (7.0-18.0); CARBON DIOXIDE,CO2 27.1 mmol/L (21.0-32.0); CHLORIDE,CL 101 mmol/L (98-107); GLUCOSE RANDOM 257 mg/dL (74-106); SODIUM,NA 138 mmol/L (136-148)
--- NOTE | 2021-04-08 03:45 | EDM.PDOC ---
ED HPI GENERAL MEDICAL PROBLEM - General Chief Complaint: General Stated Complaint: VERY BLOOD PRESSURE Time Seen by Provider: 04/08/21 02:41 - History of Present Illness INITIAL COMMENTS - FREE TEXT/NARRATIVE: CHIEF COMPLAINT(S): Hypertension HISTORY OF PRESENT ILLNESS: This is a 65-year-old man with a past medical history of hypertension and remote history of atrial fibrillation who comes to the emergency department with a chief complaint of hypertension. The patient states that he presents to the emergency department this evening because he noticed that his blood pressure was elevated. He states that when he checked it at home is 178/95. He states that he comes here because he ran out of his meds for quite some time now. He states that he normally takes lisinopril and metoprolol. He states that he was evaluated in outpatient clinic and they did provide him his medications however they would not do refills because they stated he need to follow-up with a primary care doctor. He currently denies any chest pain, headache, blurry vision, double vision, loss of vision, decreased urination, abdominal pain, nausea or vomiting. He denies any symptoms at all whatsoever other than having high blood pressure. REVIEW OF SYSTEMS: Constitutional: Denies fever, chills. Eyes: Denies eye pain Ears, Nose, Mouth, & Throat: Denies earache Cardiovascular: Denies chest pain Respiratory: Denies shortness of breath Gastrointestinal: Denies Nausea, vomiting, diarrhea, hematochezia. Genitourinary: Denies hematuria Skin:Denies a rash MSK: Denies joint pain Neurological: Denies blurred vision Psychiatric: Denies depression PAST MEDICAL HISTORY: As per history of present illness and as reviewed below otherwise noncontributory. SURGICAL HISTORY: As per history of present illness and as reviewed below otherwise noncontributory. SOCIAL HISTORY: As per history of present illness and as reviewed below otherwise noncontributory. FAMILY HISTORY: As per history of present illness and as reviewed below otherwise noncontributory. EXAMINATION OF ORGAN SYSTEMS/BODY AREAS: Constitutional: Blood pressure is 167/89, heart rate 81, respiratory rate 16 with an oxygen saturation 98% on room air. Temperature 36.1 General: Well-appearing man who is in no acute distress Psychiatric: Appropriate mood and affect. Eyes: No scleral icterus or conjunctival erythema ENMT: Moist mucous membranes. No pharyngeal erythema Cardiovascular: Regular, rate, and rhythm. No gallops, murmurs, or rubs. Bilateral upper extremity pulses symmetric and intact. No peripheral edema. No JVD. Respiratory: Lungs clear to auscultation bilaterally. No wheezes, rales, or rhonchi. Gastrointestinal: Soft, non-tender, non-distended. Normoactive bowel sounds Genitourinary: No suprapubic tenderness Musculoskeletal: Normal range of motion. Skin: No lesions or abrasions. Neurological: AOx4. CN grossly intact. Strength 5/5 in bilateral upper and lower extremity. Sensation is intact bilaterally in upper and lower extremity. Gait appears normal. Finger to nose, heel to shaikh, rapid alternating movements intact. MEDICAL DECISION MAKING AND COURSE IN THE ED WITH INTERPRETATION/REVIEW OF DIAGNOSTIC STUDIES: This is a 65-year-old man with a past medical history of hypertension [place] history of atrial fibrillation who comes to the emergency department with asymptomatic hypertension as the patient is out of his home medications. At this time given the patient is on lisinopril will obtain a BMP to evaluate for renal function. I do not believe any other labs or imaging are indicated given the patient has mildly elevated blood pressure with no symptoms. He was amenable to this plan. We will provide the patient with his home medication. Laboratory: BMP is unremarkable. Other than hyperglycemia at 257. After labs I did discuss that I did provide the patient with a prescription and he did follow-up with primary care physician for continued blood pressure management. He was given strict return precautions. The patient was amenable discharge and had no further questions DISPOSITION: The patient was discharged home in stable condition. The patient will follow up with primary care physician in 3 to 5 days CONDITION: Fair PROCEDURES: None FINAL IMPRESSION(S)/DIAGNOSES: 1. Acute uncontrolled hypertension Gordy Acuna M.D. - Related Data Allergies Allergy/AdvReac Type Severity Reaction Status Date / Time No Known Allergies Allergy Verified 04/08/21 02:43 Home Meds: Home Meds Lisinopril 10 mg PO DAILY 09/05/16 [History] Azithromycin [Zithromax] 250 mg PO Q24H #3 tablet 09/06/16 [Rx] Metoprolol Succinate [Toprol XL] 25 mg PO DAILY #30 tab.er 09/06/16 [Rx] Rivaroxaban [Xarelto] 20 mg PO ACDINNER #30 tablet 09/06/16 [Rx] metFORMIN HCl [Metformin HCl] 1,000 mg PO BID #60 tablet 09/06/16 [Rx] Metoprolol Succinate 25 mg PO DAILY #30 tab.er.24h 04/08/21 [Rx] lisinopriL [Lisinopril] 20 mg PO BID #60 tablet 04/08/21 [Rx] Past Medical History Cardiovascular History: Reports: Afib, Hypertension, SOB on Exertion Gastrointestinal History: Reports: None Genitourinary History: Reports: None Musculoskeletal History: Reports: None Neurological History: Reports: None Endocrine/Metabolic History: Reports: Diabetes, Type II, Obesity/BMI 30+ Other Endocrine/Metabolic History: "boarderline diabetic" was on metformin but stopped taking it. Dermatologic History: Reports: None - Infectious Disease History Infectious Disease History: Reports: None Social & Family History - Family History Family Medical History: No Pertinent Family History - Caffeine Use Caffeine Use: Reports: Coffee - Living Situation & Occupation Occupation: Employed ED ROS GENERAL - Review of Systems Review Of Systems: See Below ED EXAM, GENERAL - Physical Exam Exam: See Below Course - Vital Signs Last Recorded V/S: Last Vital Signs Temp 36.1 C 04/08/21 02:25 Pulse 81 04/08/21 04:00 Resp 20 04/08/21 04:00 BP 151/76 H 04/08/21 04:00 Pulse Ox 99 04/08/21 04:00 - Orders/Labs/Meds Labs: Laboratory Tests 04/08/21 Range/Units 03:00 Sodium 138 (136-148) mmol/L Potassium 4.0 (3.5-5.1) mmol/L Chloride 101 (98-107) mmol/L Carbon Dioxide 27.1 (21.0-32.0) mmol/L BUN 15 (7.0-18.0) mg/dL Creatinine 0.9 (0.8-1.3) mg/dL Est Cr Clr Drug Dosing 88.62 mL/min Estimated GFR (MDRD) > 60.0 ml/min Glucose 257 H (74-106) mg/dL Calcium 9.0 (8.5-10.1) mg/dL Departure - Departure Time of Disposition: 03:45 Disposition: Home, Self-Care 01 Condition: Fair Clinical Impression: Hypertension - Discharge Information *PRESCRIPTION DRUG MONITORING PROGRAM REVIEWED*: No *COPY OF PRESCRIPTION DRUG MONITORING REPORT IN PATIENT ISMAEL: No Prescriptions: lisinopriL [Lisinopril] 20 mg PO BID #60 tablet Metoprolol Succinate 25 mg PO DAILY #30 tab.er.24h Instructions: Hypertension, Adult, [id number] Referrals: PCP,None [Primary Care Provider] - Forms: ED Department Discharge Additional Instructions: Your evaluated today on an emergent basis. At this time your kidney function is normal. I recommend you continue using your prescriptions for hypertension. I would like you to follow-up with primary care physician in 3 to 5 days for reevaluation. You have any worsening symptoms such as chest pain, shortness of breath, trouble walking speaking or swallowing I would like you to return to the emergency department. [facility] [address] [place] [address] [id number] [address] [id number] The patient is informed of any results of their evaluation and diagnostic workup and all questions are answered. They are given discharge instructions and return precautions. The patient is stable for discharge. The patient states they understand and agree with the plan and that they will return if their symptoms get worse or if they have any new concerns. The following information is given to patients seen in the emergency department who are being discharged to home. This information is to outline your options for follow-up care. We provide all patients seen in our emergency department with a follow-up referral. The need for follow-up, as well as the timing and circumstances, are variable depending upon the specifics of your emergency department visit. If you don't have a primary care physician on staff, we will provide you with a referral. We always advise you to contact your personal physician following an emergency department visit to inform them of the circumstance of the visit and for follow-up with them and/or the need for any referrals to a consulting specialist. The emergency department will also refer you to a specialist when appropriate. This referral assures that you have the opportunity for follow-up care with a specialist. All of these measure are taken in an effort to provide you with optimal care, which includes your follow-up. Under all circumstances we always encourage you to contact your private physician who remains a resource for coordinating your care. When calling for follow-up care, please make the office aware that this follow-up is from your recent emergency room visit. If for any reason you are refused follow-up, please contact the [facility] Emergency Department at and asked to speak to the emergency department charge nurse. Sepsis Event Note (ED) - Evaluation Sepsis Screening Result: No Definite Risk
[2021-04-08 05:20] VITALS: BP 151/76
== END 2021-04-08 04:12 | disposition home or self-care (01) ==
LOC: MW.ED 02:25
DX: I10 Essential (primary) hypertension (principal); I48.91 Unspecified atrial fibrillation; Z79.899 Other long term (current) drug therapy; Z79.01 Long term (current) use of anticoagulants; Z79.84 Long term (current) use of oral hypoglycemic drugs
CPT/HCPCS: 36415; 80048; 99283